=== PATIENT | female | born 1975 | race African-American/Black ===

== ENCOUNTER 2020-10-25 11:10 | Inpatient (IN) | payer OTHER ==
[2020-10-25 11:42] VITALS: BMI 38.3
[2020-10-25] MEDS ORDERED: ACETAMINOPHEN 325 MG TABLET (FP) PO PRN ×2 (12:20)
[2020-10-25] MEDS ORDERED: ONDANSETRON *ODT* 4 MG TABLET SL PRN (12:20)
[2020-10-25] MEDS ORDERED: MENTHOL/PHENOL 1 EACH UD MM PRN (12:20)
[2020-10-25] MEDS ORDERED: BISMUTH SUBSALICYLATE 262 MG/15 ML BTL PO PRN (12:20)
[2020-10-25] MEDS ORDERED: METHOCARBAMOL 500 MG TABLET PO PRN (12:20)
[2020-10-25] MEDS ORDERED: IBUPROFEN 400 MG TABLET (FP) PO PRN (12:20)
[2020-10-25] MEDS ORDERED: NICOTINE POLACRILEX 2 MG GUM BUC PRN (12:20)
[2020-10-25] MEDS ORDERED: MAG HYDROX/AL HYDROX/SIMETH 30 ML UNIT-DOSE CUP PO PRN (12:20)
[2020-10-25] MEDS ORDERED: MAGNESIUM CITRATE 300 ML BOTTLE PO PRN (12:20)
[2020-10-25] MEDS ORDERED: MAGNESIUM HYDROX 2400MG/30ML ORAL SUSPENSION 30 ML CUP PO PRN (12:20)
[2020-10-25] MEDS: LORazepam 1 MG TABLET PO SCH ×4 (13:47→22:01)
[2020-10-25] MEDS: NICOTINE 14 MG/24 HOURS TOPICAL PATCH TD SCH (13:56)
[2020-10-25] MEDS: hydrOXYzine PAMOATE 25 MG CAPSULE (FP) PO SCH ×3 (13:56→22:01)
[2020-10-25] MEDS ORDERED: LORazepam 0.5 MG TABLET PO PRN (17:00)
[2020-10-25 17:14] LABS: HEMATOCRIT 29.7 % (32.4-45.2); HEMOGLOBIN 9.2 GM/dL (10.7-15.3); MCH 22.9 pg (25.7-33.7); MCHC 30.9 g/dl (32.0-36.0); MEAN CELL VOLUME 74.3 fl (80-96); MEAN PLT VOLUME 7.8 fl (7.5-11.1); PLATELET COUNT 262 K/MM3 (134-434); RDW 22.4 % (11.6-15.6); WHITE BLOOD COUNT 7.1 K/mm3 (4.0-10.0)
[2020-10-25 17:19] LABS: POTASSIUM 3.7 mmol/L (3.5-5.1)
[2020-10-25 17:20] LABS: CALCIUM 8.6 mg/dL (8.5-10.1)
[2020-10-25 17:21] LABS: ALBUMIN 3.2 g/dl (3.4-5.0); BLOOD UREA NITROGEN 13.9 mg/dL (7-18)
[2020-10-25 17:24] LABS: CREATININE 0.6 mg/dL (0.55-1.3)
[2020-10-25 17:26] LABS: BILIRUBIN,TOTAL 0.4 mg/dL (0.2-1); TOT PROT 6.6 g/dl (6.4-8.2)
[2020-10-25] MEDS: THIAMINE HCL 100 MG TABLET (FP) PO SCH (22:01)
[2020-10-25] MEDS: MELATONIN 5 MG TABLETS PO SCH (22:03)
[2020-10-26] MEDS: hydrOXYzine PAMOATE 25 MG CAPSULE (FP) PO SCH ×5 (05:46→22:19)
[2020-10-26] MEDS: LORazepam 0.5 MG TABLET PO SCH ×4 (05:47→22:19)
[2020-10-26] MEDS ORDERED: DIVALPROEX NA *ER* EXTEND REL 250 MG TABLET.SA PO SCH (10:00)
[2020-10-26] MEDS: ATOMOXETINE HCL 40 MG CAPSULE PO SCH (10:24)
[2020-10-26] MEDS: PRENATAL VITAMINS W/ FOLIC ACID TABLET (FP) PO SCH (10:24)
[2020-10-26] MEDS: NICOTINE 14 MG/24 HOURS TOPICAL PATCH TD SCH (10:24)
[2020-10-26] MEDS: DIVALPROEX SODIUM 500 MG TABLET E.C. PO SCH ×2 (10:24→22:19)
[2020-10-26] MEDS ORDERED: PNEUMOCOCCAL 23 VACCINE 0.5 ML VIAL IM ONE (12:00)
[2020-10-26] MEDS: GABAPENTIN 300 MG CAPSULE PO SCH ×2 (14:41→22:19)
[2020-10-26] MEDS ORDERED: QUEtiapine FUMARATE 400 MG TABLET PO SCH (22:00)
[2020-10-26] MEDS: MELATONIN 5 MG TABLETS PO SCH (22:19)
[2020-10-26] MEDS: THIAMINE HCL 100 MG TABLET (FP) PO SCH (22:30)
[2020-10-27] MEDS ORDERED: LORazepam 0.5 MG TABLET PO ONE (05:00)
[2020-10-27] MEDS: GABAPENTIN 300 MG CAPSULE PO SCH (06:30)
[2020-10-27] MEDS: hydrOXYzine PAMOATE 25 MG CAPSULE (FP) PO SCH (06:30)
[2020-10-27] MEDS: PRENATAL VITAMINS W/ FOLIC ACID TABLET (FP) PO SCH (09:25)
[2020-10-27] MEDS: DIVALPROEX SODIUM 500 MG TABLET E.C. PO SCH (09:25)
[2020-10-27] MEDS: ATOMOXETINE HCL 40 MG CAPSULE PO SCH (09:25)
[2020-10-27] MEDS: NICOTINE 14 MG/24 HOURS TOPICAL PATCH TD SCH (09:27)
[2020-10-27 09:57] VITALS: BP 149/81; PULSE 105; TEMP 97.1
[2020-10-27] MEDS ORDERED: PNEUMOC 13-VAL CONJ-DIP CRM/PF 0.5 ML DISP.SYRIN IM ONE (12:00)
== END 2020-10-27 09:35 | disposition home or self-care (01) | DRG 897 ==
LOC: YASAS 11:10 → Y6N 12:31
PROVIDERS: ADMIT Allergy & Immunology; ATTEND Allergy & Immunology
PROC: HZ2ZZZZ Detoxification Services for Substance Abuse Treatment (ICD-10-PCS; principal; 2020-10-25)
DX: F10.230 Alcohol dependence with withdrawal, uncomplicated (principal); F13.20 Sedative, hypnotic or anxiolytic dependence, uncomplicated; F19.282 Other psychoactive substance dependence with psychoactive substance-induced sleep disorder; F19.280 Other psychoactive substance dependence with psychoactive substance-induced anxiety disorder; F12.20 Cannabis dependence, uncomplicated; F17.210 Nicotine dependence, cigarettes, uncomplicated; F25.9 Schizoaffective disorder, unspecified; F90.9 Attention-deficit hyperactivity disorder, unspecified type; I10 Essential (primary) hypertension; Z62.810 Personal history of physical and sexual abuse in childhood; E66.9 Obesity, unspecified; Z68.38 Body mass index [BMI] 38.0-38.9, adult; Z98.84 Bariatric surgery status; Z88.0 Allergy status to penicillin; Z56.0 Unemployment, unspecified; Z59.0 Homelessness
CPT/HCPCS: 36415; 80053; 80164; 81025; 85027; 86780; 87389; 90732; 93005; 93010; C9803; G0009; U0003

== ENCOUNTER 2022-10-04 12:52 | Inpatient (IN) | payer OTHER ==
[2022-10-04] MEDS ORDERED: IBUPROFEN 400 MG TABLET (FP) PO PRN (15:17)
[2022-10-04] MEDS ORDERED: chlordiazePOXIDE HCL 25 MG CAPSULE PO ONE (15:17)
[2022-10-04] MEDS ORDERED: BISMUTH SUBSALICYLATE 262 MG/15 ML BTL PO PRN (15:17)
[2022-10-04] MEDS ORDERED: LOPERAMIDE HCL 2 MG CAPSULE PO PRN (15:17)
[2022-10-04] MEDS ORDERED: MAG HYDROX/AL HYDROX/SIMETH 30 ML UNIT-DOSE CUP PO PRN (15:17)
[2022-10-04] MEDS ORDERED: DICYCLOMINE HCL 10 MG CAPSULE PO PRN (15:17)
[2022-10-04] MEDS ORDERED: chlordiazePOXIDE HCL 25 MG CAPSULE PO PRN (15:17)
[2022-10-04] MEDS ORDERED: ONDANSETRON *ODT* 4 MG TABLET SL PRN (15:17)
[2022-10-04] MEDS ORDERED: MAGNESIUM HYDROX 2400MG/30ML ORAL SUSPENSION 30 ML CUP PO PRN (15:17)
[2022-10-04] MEDS ORDERED: NALOXONE HCL (KLOXXADO) 8 MG SPRAY NS PRN (15:17)
[2022-10-04] MEDS ORDERED: POLYETHYLENE GLYCOL (HEALTHYLAX) 3350 17 GM PACKET PO PRN (15:17)
[2022-10-04] MEDS ORDERED: BENZOCAINE/MENTHOL (CHLORASEPTIC ) LOZENGE MM PRN (15:17)
[2022-10-04] MEDS ORDERED: ACETAMINOPHEN 325 MG TABLET (FP) PO PRN ×2 (15:17)
[2022-10-04 16:49] VITALS: BMI 34.8
[2022-10-04] MEDS ORDERED: chlordiazePOXIDE HCL 25 MG CAPSULE ONE ×2 (17:01→17:12)
[2022-10-04] MEDS: chlordiazePOXIDE HCL 25 MG CAPSULE PO SCH ×2 (17:09→22:52)
[2022-10-04] MEDS: hydrOXYzine PAMOATE 25 MG CAPSULE (FP) PO PRN (17:10)
[2022-10-04] MEDS ORDERED: hydrOXYzine PAMOATE 25 MG CAPSULE (FP) PO ONE (17:11)
[2022-10-04] MEDS: IBUPROFEN 600 MG TABLET (FP) PO PRN (17:13)
[2022-10-04] MEDS ORDERED: IBUPROFEN 600 MG TABLET (FP) PO ONE (17:15)
[2022-10-04] MEDS: PRENATAL VITAMINS W/ FOLIC ACID TABLET (FP) PO SCH (17:44)
[2022-10-04] MEDS: GABAPENTIN 300 MG CAPSULE PO SCH ×2 (17:51→22:52)
[2022-10-04] MEDS ORDERED: MELATONIN 5 MG TABLETS PO SCH (22:00)
[2022-10-04] MEDS: THIAMINE HCL 100 MG TABLET (FP) PO SCH (22:52)
[2022-10-05] MEDS: GABAPENTIN 300 MG CAPSULE PO SCH ×3 (06:00→22:49)
[2022-10-05] MEDS: chlordiazePOXIDE HCL 25 MG CAPSULE PO SCH ×4 (06:03→22:49)
[2022-10-05] MEDS: valACYclovir HCL 500 MG TABLET (FP) PO SCH (10:52)
[2022-10-05] MEDS: METHOCARBAMOL 500 MG TABLET PO PRN ×2 (10:52→17:50)
[2022-10-05] MEDS: NICOTINE 21 MG/24 HOURS TOPICAL PATCH TD SCH (10:52)
[2022-10-05] MEDS: hydrOXYzine PAMOATE 25 MG CAPSULE (FP) PO PRN (10:52)
[2022-10-05] MEDS: PRENATAL VITAMINS W/ FOLIC ACID TABLET (FP) PO SCH (10:52)
[2022-10-05] MEDS: buPROPion HCL 75 MG TABLET PO SCH (10:53)
[2022-10-05 14:38] LABS: HEMATOCRIT 40.5 % (32.4-45.2); HEMOGLOBIN 13.4 GM/dL (10.7-15.3); MCH 29.9 pg (25.7-33.7); MCHC 33.1 g/dl (32.0-36.0); MEAN CELL VOLUME 90.5 fl (80-96); MEAN PLT VOLUME 7.7 fl (7.5-11.1); PLATELET COUNT 330 10^3/uL (134-434); RBC 4.47 M/mm3 (3.60-5.2); RDW 14.8 % (11.6-15.6); WHITE BLOOD COUNT 8.4 K/mm3 (4.0-10.0)
[2022-10-05 15:15] LABS: ALBUMIN 3.4 g/dl (3.4-5.0)
[2022-10-05 15:16] LABS: BLOOD UREA NITROGEN 12.8 mg/dL (7-18)
[2022-10-05 15:18] LABS: CREATININE 0.6 mg/dL (0.55-1.3)
[2022-10-05 15:20] LABS: BILIRUBIN,TOTAL 0.4 mg/dL (0.2-1); TOT PROT 6.6 g/dl (6.4-8.2)
[2022-10-05 15:22] LABS: CALCIUM 8.6 mg/dL (8.5-10.1)
[2022-10-05] MEDS: THIAMINE HCL 100 MG TABLET (FP) PO SCH (22:49)
[2022-10-06] MEDS: chlordiazePOXIDE HCL 25 MG CAPSULE PO SCH ×4 (06:20→22:03)
[2022-10-06] MEDS: GABAPENTIN 300 MG CAPSULE PO SCH ×3 (06:20→22:01)
[2022-10-06] MEDS: NICOTINE 10 MG CARTRIDGE (INHALER) IH PRN (06:21)
[2022-10-06] MEDS: NICOTINE 21 MG/24 HOURS TOPICAL PATCH TD SCH (10:44)
[2022-10-06] MEDS: PRENATAL VITAMINS W/ FOLIC ACID TABLET (FP) PO SCH (10:44)
[2022-10-06] MEDS: IBUPROFEN 600 MG TABLET (FP) PO PRN (10:44)
[2022-10-06] MEDS: buPROPion HCL 75 MG TABLET PO SCH (10:45)
[2022-10-06] MEDS: valACYclovir HCL 500 MG TABLET (FP) PO SCH (10:45)
[2022-10-06] MEDS: LACTULOSE 20 GM/30 ML UDC (FOR ORAL USE ONLY) PO SCH ×3 (14:17→22:00)
[2022-10-06] MEDS: METHOCARBAMOL 500 MG TABLET PO PRN (17:35)
[2022-10-06] MEDS: hydrOXYzine PAMOATE 25 MG CAPSULE (FP) PO PRN (17:35)
[2022-10-06] MEDS: THIAMINE HCL 100 MG TABLET (FP) PO SCH (22:01)
[2022-10-06] MEDS: SUVOREXANT 10 MG TABLET PO PRN (22:03)
[2022-10-07] MEDS ORDERED: chlordiazePOXIDE HCL 10 MG CAPSULE PO PRN
[2022-10-07] MEDS: chlordiazePOXIDE HCL 10 MG CAPSULE PO SCH ×4 (06:07→22:41)
[2022-10-07] MEDS: GABAPENTIN 300 MG CAPSULE PO SCH ×3 (06:07→22:41)
[2022-10-07] MEDS: valACYclovir HCL 500 MG TABLET (FP) PO SCH (10:49)
[2022-10-07] MEDS: METHOCARBAMOL 500 MG TABLET PO PRN ×2 (10:49→17:26)
[2022-10-07] MEDS: buPROPion HCL 75 MG TABLET PO SCH (10:49)
[2022-10-07] MEDS: IBUPROFEN 600 MG TABLET (FP) PO PRN (10:50)
[2022-10-07] MEDS: PRENATAL VITAMINS W/ FOLIC ACID TABLET (FP) PO SCH (10:50)
[2022-10-07] MEDS: NICOTINE 21 MG/24 HOURS TOPICAL PATCH TD SCH (10:52)
[2022-10-07] MEDS: LACTULOSE 20 GM/30 ML UDC (FOR ORAL USE ONLY) PO SCH ×4 (10:58→22:42)
[2022-10-07] MEDS: amLODIPine BESYLATE 5 MG TABLET (FP) PO SCH (11:37)
[2022-10-07] MEDS: hydrOXYzine PAMOATE 25 MG CAPSULE (FP) PO PRN ×2 (17:27→22:40)
[2022-10-07] MEDS: SUVOREXANT 10 MG TABLET PO PRN (22:40)
[2022-10-07] MEDS: THIAMINE HCL 100 MG TABLET (FP) PO SCH (22:41)
[2022-10-08] MEDS: METHOCARBAMOL 500 MG TABLET PO PRN ×2 (03:47→10:32)
[2022-10-08] MEDS: IBUPROFEN 600 MG TABLET (FP) PO PRN (03:47)
[2022-10-08] MEDS: chlordiazePOXIDE HCL 10 MG CAPSULE PO SCH ×2 (05:57→17:48)
[2022-10-08] MEDS: GABAPENTIN 300 MG CAPSULE PO SCH ×2 (06:08→14:11)
[2022-10-08] MEDS: buPROPion HCL 75 MG TABLET PO SCH (10:32)
[2022-10-08] MEDS: LACTULOSE 20 GM/30 ML UDC (FOR ORAL USE ONLY) PO SCH ×3 (10:32→18:49)
[2022-10-08] MEDS: PRENATAL VITAMINS W/ FOLIC ACID TABLET (FP) PO SCH (10:32)
[2022-10-08] MEDS: NICOTINE 21 MG/24 HOURS TOPICAL PATCH TD SCH (10:32)
[2022-10-08] MEDS: NICOTINE 10 MG CARTRIDGE (INHALER) IH PRN (10:32)
[2022-10-08] MEDS: valACYclovir HCL 500 MG TABLET (FP) PO SCH (10:32)
[2022-10-08] MEDS: amLODIPine BESYLATE 5 MG TABLET (FP) PO SCH (10:32)
[2022-10-08 13:19] VITALS: RESP 18; TEMP 97.2
[2022-10-08 17:20] VITALS: BP 136/91; PULSE 105
[2022-10-09] MEDS ORDERED: chlordiazePOXIDE HCL 10 MG CAPSULE PO ONE (05:00)
== END 2022-10-08 18:35 | disposition home or self-care (01) | DRG 896 ==
LOC: YASAS 12:52 → Y6N 17:11
PROVIDERS: ADMIT Allergy & Immunology; ATTEND Surgery
PROC: HZ2ZZZZ Detoxification Services for Substance Abuse Treatment (ICD-10-PCS; principal; 2022-10-04)
DX: F10.230 Alcohol dependence with withdrawal, uncomplicated (principal); U07.1 COVID-19; F12.20 Cannabis dependence, uncomplicated; F17.210 Nicotine dependence, cigarettes, uncomplicated; F31.9 Bipolar disorder, unspecified; F19.24 Other psychoactive substance dependence with psychoactive substance-induced mood disorder; F20.9 Schizophrenia, unspecified; G62.1 Alcoholic polyneuropathy; I10 Essential (primary) hypertension; M06.9 Rheumatoid arthritis, unspecified; M54.50 Low back pain, unspecified; G89.29 Other chronic pain; R79.89 Other specified abnormal findings of blood chemistry; Z62.810 Personal history of physical and sexual abuse in childhood; E66.9 Obesity, unspecified; Z68.34 Body mass index [BMI] 34.0-34.9, adult; Z88.0 Allergy status to penicillin
CPT/HCPCS: 36415; 80053; 82140; 85027; 86780; C9803-CS; U0003; U0005